=== PATIENT | male | born 1990 | race Caucasian/White ===

== ENCOUNTER 2019-03-08 11:18 | Emergency (ER) | payer OTHER ==
[~2019-03-08] VITALS: Ht 160 cm; Wt 65.0 kg
[2019-03-08 11:34] VITALS: BP 140/89; PULSE 109; RESP 18; Ht 160 cm; Wt 65.0 kg
[2019-03-08] MEDS ORDERED: CEPH-443 PO (14:00)
--- NOTE | 2019-03-08 14:00 | ERD ---
ER Documentation Chief Complaint Chief Complaint using drugs needle broke inside his arm HPI 28-year-old male who was injecting drugs into his elbow yesterday and states the needle broke and believes a piece of the needle is still retained within the soft tissue of his elbow. He does not feel that there and he cannot tell where it is. He has had no fever. No bleeding or drainage. No numbness or tingling. No loss of range of motion. ROS All systems reviewed and are negative except as per history of present illness. FmHx Family History: No diabetes Physical Exam Vitals Vital Signs Date Temp Pulse Resp B/P (MAP) Pulse Ox O2 O2 Flow FiO2 Time Delivery Rate 03/08/19 98.1 109 18 140/89 98 11:34 (106) Physical Exam Const: No acute distress Head: Atraumatic Eyes: Normal Conjunctiva ENT: Normal External Ears, Nose and Mouth. Neck: Full range of motion. No meningismus. Resp: Clear to auscultation bilaterally Cardio: Regular rate and rhythm, no murmurs Upper Extremity -right: Skin: Antecubital fossa of right elbow has an area of thickening of the skin at injection site, no puncture wounds or lacerations seen, no surrounding erythema or edema Compartments: Soft Motor: Full active range of motion shoulder/elbow/wrist/hand Sensation: Intact shoulder/pinky/middle finger/thumb web space Bones: Nontender humerus/elbow/forearm/wrist/hand Snuffbox: Nontender Joints: No effusion Pulses/Perfusion: 2+ radial, Capillary refill < 2 seconds Procedures/MDM Patient presents with small linear foreign body in right elbow which was confirmed on x-ray today. It is not palpable on exam. Exam of his elbow is grossly normal. Explained to the patient it would do more damage to compliantly dissect his arm to try to remove this foreign body and is not even able to be appreciated on physical exam. I explained to him the likelihood that it may move itself out of the body on his own otherwise he should follow-up with primary care for possible outpatient referral to general surgery. He was given outpatient [place] follow-up. Patient counseled regarding my diagnostic impression and care plan. Prior to discharge all questions answered. Pt agrees with treatment plan and understands strict return precautions. Pt is instructed to follow up with primary care provider within 24-48 hours. Precautionary instructions provided including instructions to return to the ER if not improving or for any worsening or changing symptoms or concerns. Departure Diagnosis: Primary Impression: Retained foreign body Condition: Stable Patient Instructions: Foreign Body, Soft Tissue [Not Removed] Referrals: [facility] YOU HAVE RECEIVED A MEDICAL SCREENING EXAM AND THE RESULTS INDICATE THAT YOU DO NOT HAVE A CONDITION THAT REQUIRES URGENT TREATMENT IN THE EMERGENCY DEPARTMENT. FURTHER EVALUATION AND TREATMENT OF YOUR CONDITION CAN WAIT UNTIL YOU ARE SEEN IN YOUR DOCTORS OFFICE WITHIN THE NEXT 1-2 DAYS. IT IS YOUR RESPONSIBILITY TO MAKE AN APPOINTMENT FOR FOLOW-UP CARE. IF YOU HAVE A PRIMARY DOCTOR --you should call your primary doctor and schedule and appointment IF YOU DO NOT HAVE A PRIMARY DOCTOR YOU CAN CALL OUR PHYSICIAN REFERRAL HOTLINE AT . IF YOU CAN NOT AFFORD TO SEE A PHYSICIAN YOU CAN CHOSE FROM THE FOLLOWING [facility] INSTITUTIONS: [facility] [address] [place] [address] [facility] [address] [place] [address] [facility] [address] [place] [address] Additional Instructions: Call your primary care doctor TOMORROW for an appointment during the next 1-2 days.See the doctor sooner or return here if your condition worsens before your appointment time. CHIDI HENNESSY PA-C March 08, 2019 14:00
== END 2019-03-08 14:18 | disposition home or self-care (01) ==
LOC: FTE 11:18
DX: S50.352A Superficial foreign body of left elbow, initial encounter (principal); X58.XXXA Exposure to other specified factors, initial encounter; Y92.9 Unspecified place or not applicable
CPT/HCPCS: 73080; Z7502

== ENCOUNTER 2019-06-11 00:09 | Emergency (ER) | payer OTHER ==
[~2019-06-11] VITALS: Ht 170.2 cm; Wt 65.0 kg
[~2019-06-11 00:09] MED LIST: CEPH-443 PO; DOXY100T20 PO; IBUP-1542 PO
[2019-06-11 00:17] VITALS: Ht 170.2 cm; Wt 65.0 kg
[2019-06-11 02:14] VITALS: BP 134/75; PULSE 95; RESP 18
--- NOTE | 2019-06-11 05:28 | ERD ---
ER Documentation Chief Complaint Chief Complaint INSECT BITE LEFT LOWER LEG. HPI This is a 28-year-old male presenting to the emergency department complaining of infection to the of redness and swelling to the right lower extremity. Symptoms have worsened overall. He is taken no medication for relief of symptoms. Symptoms are moderate to severe. He denies any fevers, chills, or other symptoms at this time. He denies any IV drug use. ROS All systems reviewed and are negative except as per history of present illness. Medications Home Meds Active Scripts Ibuprofen* (Motrin*) 600 Mg Tab, 600 MG PO Q6, #30 TAB Prov:PROMISE MCCARTNEY PA-C 06/11/19 Doxycycline Hyclate* (Doxycycline Hyclate*) 100 Mg Tablet.dr, 100 MG PO BID for 10 Days, TAB Prov:PROMISE MCCARTNEY PA-C 06/11/19 Cephalexin* (Keflex*) 500 Mg Capsule, 500 MG PO QID for 7 Days, CAP Prov:CHIDI HENNESSY PA-C 03/08/19 Allergies Allergies: Coded Allergies: No Known Allergy (Unverified , 03/08/19) PMhx/Soc Medical and Surgical Hx: pt denies Medical Hx, pt denies Surgical Hx Hx Alcohol Use: Yes Hx Substance Use: Yes (marijuana,meth,heroin) Hx Tobacco Use: Yes Smoking Status: Never smoker FmHx Family History: No diabetes Physical Exam Vitals Vital Signs Date Temp Pulse Resp B/P (MAP) Pulse Ox O2 O2 Flow FiO2 Time Delivery Rate 06/11/19 98.1 95 18 134/75 97 Room Air 02:14 (94) 06/11/19 97.7 98 14 150/86 97 00:17 (107) Physical Exam Const: No acute distress Head: Atraumatic Eyes: Normal Conjunctiva ENT: Normal External Ears, Nose and Mouth. Neck: Full range of motion. No meningismus. Resp: Clear to auscultation bilaterally Cardio: Regular rate and rhythm, no murmurs Skin: No petechiae or rashes Back: No midline or flank tenderness Ext: There is an approximate 2 cm x 2 cm indurated abscess noted to the right lower extremity just superior to the ankle. There is mild surrounding erythema. No significant warmth. There is no necrosis noted. There is no crepitus on palpation. Neur: Awake and alert Psych: Normal Mood and Affect Procedures/MDM 28-year-old male presenting to the emergency department for abscess to the right lower extremity. Examination revealed an indurated abscess with no indication for incision and drainage at this time. Patient is nontoxic and well-appearing and afebrile with stable vital signs. No evidence to suggest necrotizing fa sciitis, ascending infection, sepsis, or other emergent process. Patient is stable and appropriate for discharge and further outpatient management with prescription for ibuprofen and doxycycline. Patient advised to return here immediately for any new, worsening, or concerning symptoms. Patient was in agreement with the diagnosis, plan, need for follow-up, return precautions. Patient's blood pressure was elevated (>120/80) but appears stable without evidence of hypertension emergency or urgency. The patient is to follow-up and pursue outpatient monitoring and therapy with their primary care physician within 1 week and return immediately if they have any new, worsening, or concerning symptoms. Departure Diagnosis: Primary Impression: Abscess of right lower extremity excluding foot Condition: Fair Patient Instructions: Abscess, Antiobiotic Treatment Only Referrals: [facility] YOU HAVE RECEIVED A MEDICAL SCREENING EXAM AND THE RESULTS INDICATE THAT YOU DO NOT HAVE A CONDITION THAT REQUIRES URGENT TREATMENT IN THE EMERGENCY DEPARTMENT. FURTHER EVALUATION AND TREATMENT OF YOUR CONDITION CAN WAIT UNTIL YOU ARE SEEN IN YOUR DOCTORS OFFICE WITHIN THE NEXT 1-2 DAYS. IT IS YOUR RESPONSIBILITY TO MAKE AN APPOINTMENT FOR FOLOW-UP CARE. IF YOU HAVE A PRIMARY DOCTOR --you should call your primary doctor and schedule an appointment IF YOU DO NOT HAVE A PRIMARY DOCTOR YOU CAN CALL OUR PHYSICIAN REFERRAL HOTLINE AT IF YOU CAN NOT AFFORD TO SEE A PHYSICIAN YOU CAN CHOSE FROM THE FOLLOWING [facility] [address] [facility]. [facility] [address] [facility] [facility] [address] [facility] [address] [facility]. [facility] [address] [facility]. [facility]. [address] Additional Instructions: Return to this facility in 2 DAYS for a follow-up exam.Return sooner if your condition worsens. PROMISE MCCARTNEY PA-C Jun 11, 2019 05:28
== END 2019-06-11 02:15 | disposition home or self-care (01) ==
LOC: FTE 00:09
DX: L02.415 Cutaneous abscess of right lower limb (principal)
CPT/HCPCS: 99283